=== PATIENT | male | born 1955 | race Asian ===

== ENCOUNTER 2022-12-30 14:37 | Inpatient (IN) | payer MEDICARE, OTHER ==
[~2022-12-30] VITALS: Ht 170.2 cm; Wt 85.3 kg
[2022-12-30] MEDS ORDERED: SODIUM CHLORIDE 0.9% 1,000 ML IV ONE (15:15)
[2022-12-30 15:55] LABS: BASOPHILS % 0.7 % (0.0-2.0); EOSINOPHILS % 0.1 % (0.0-5.0); HEMATOCRIT. 36.7 % (42.0-52.0); HEMOGLOBIN. 13.1 g/dL (14.0-18.0); LYMPHOCYTES % 17.4 % (20.0-50.0); MEAN CORPUSCULAR HEMOGLOBIN 32.8 pg (28.0-32.0); MEAN CORPUSCULAR VOLUME 91.9 fL (80.0-94.0); MEAN PLATELET VOLUME 8.6 fl (7.4-10.4); MONOCYTES % 5.2 % (2.0-8.0); NEUTROPHILS % 76.6 % (40.0-76.0); PLATELET 153 x1000/uL (130-400); RED BLOOD CELL COUNT 3.99 mill/uL (4.7-6.1); RED CELL DISTRIBUTION WIDTH 12.6 % (11.6-14.6)
[2022-12-30 16:04] LABS: CHLORIDE 102 mEq/L (98-107); PARTIAL THROMBOPLASTIN TIME 27.3 sec (23.4-31.0); PROTHROMBIN TIME 10.9 sec (9.6-11.0)
[2022-12-30] MEDS ORDERED: CLOPIDOGREL 75MG TABLET PO ONE (17:30)
[2022-12-30] MEDS ORDERED: ASPIRIN 81MG TABLET PO ONE (17:30)
[2022-12-30 20:30] VITALS: BP_SYST 119; BP_SYST 129; BP_DIAS 69; BP_DIAS 76
[2022-12-30 21:00] VITALS: BP 129/76
[2022-12-30] MEDS ORDERED: GUAIFENESIN 200MG/10ML SUGAR FREE UDC PO PRN (21:45)
[2022-12-30] MEDS ORDERED: ACETAMINOPHEN 650MG SUPP PR PRN (21:45)
[2022-12-30] MEDS ORDERED: ACETAMINOPHEN 650MG/20.3ML UDC GT PRN (21:45)
[2022-12-30] MEDS ORDERED: CLONIDINE 0.1MG TABLET PO PRN (21:45)
[2022-12-30] MEDS ORDERED: MAGNESIUM/ALUMINUM HYDROXIDE/SIMETHICONE 30ML UDC PO PRN (21:45)
[2022-12-30] MEDS ORDERED: ONDANSETRON HCL 4MG/2ML INJ IV PRN (21:45)
[2022-12-30] MEDS: SODIUM CHLORIDE 0.9% 1,000 ML IV SCH (22:00)
[2022-12-30] MEDS ORDERED: DEXTROSE 50% WATER 50ML SYRINGE IV PRN (22:30)
[2022-12-30] MEDS: ENOXAPARIN 40MG/0.4ML SYR SUBCUT SCH (23:13)
[2022-12-30] MEDS: INSULIN LISPRO 100 UNITS/ML SUBCUT SCH (23:17)
[2022-12-30] MEDS ORDERED: IOHEXOL-350 100 ML BOTTLE ONE (23:21)
[2022-12-30 23:56] LABS: CHLORIDE 108 mEq/L (98-107)
[2022-12-31] VITALS: BP 114/77
[2022-12-31 00:02] LABS: TOTAL IRON BINDING CAPACITY 266 ug/dL (250-450)
[2022-12-31 00:23] LABS: FERRITIN 31 ng/mL (22-322)
[2022-12-31 00:25] LABS: FOLIC ACID (FOLATE) SERUM >20 ng/mL ng/mL (>5.38); VITAMIN B12 SERUM 396 pg/mL (211-911)
[2022-12-31 04:00] VITALS: BP 109/74
[2022-12-31] MEDS: INSULIN LISPRO 100 UNITS/ML SUBCUT SCH ×7 (07:01→21:00)
[2022-12-31] MEDS: BLOOD SUGAR DIAGNOSTIC STRIP TEST SCH ×4 (07:02→21:50)
[2022-12-31] MEDS ORDERED: INSULIN LISPRO 100 UNITS/ML SUBCUT SCH (07:20)
[2022-12-31 07:39] LABS: T4 FREE 0.96 ng/dL (0.76-1.46)
[2022-12-31 07:59] LABS: BASOPHILS % 0.7 % (0.0-2.0); EOSINOPHILS % 0.6 % (0.0-5.0); HEMATOCRIT. 39.1 % (42.0-52.0); HEMOGLOBIN. 13.7 g/dL (14.0-18.0); LYMPHOCYTES % 32.8 % (20.0-50.0); MEAN CORPUSCULAR HEMOGLOBIN 32.7 pg (28.0-32.0); MEAN CORPUSCULAR VOLUME 93.5 fL (80.0-94.0); MONOCYTES % 7.9 % (2.0-8.0); PLATELET 152 x1000/uL (130-400); RED BLOOD CELL COUNT 4.19 mill/uL (4.7-6.1); RED CELL DISTRIBUTION WIDTH 12.7 % (11.6-14.6)
[2022-12-31 08:00] VITALS: BP 131/73
[2022-12-31] MEDS: SODIUM CHLORIDE 0.9% 1,000 ML IV SCH ×2 (08:00→18:06)
[2022-12-31] MEDS: FAMOTIDINE 20MG TABLET PO SCH ×2 (09:30→21:47)
[2022-12-31] MEDS: CLOPIDOGREL 75MG TABLET PO SCH (09:30)
[2022-12-31] MEDS: ASPIRIN 81MG TABLET PO SCH (09:30)
[2022-12-31] MEDS: FOLIC ACID 1MG TABLET PO SCH (10:51)
[2022-12-31] MEDS: THIAMINE HCL 100MG TABLET PO SCH (10:51)
[2022-12-31 12:00] VITALS: BP 124/76
[2022-12-31 16:00] VITALS: BP 127/76
[2022-12-31 20:00] VITALS: BP 115/91
[2022-12-31] MEDS ORDERED: ATORVASTATIN CALCIUM 40MG TABLET PO SCH ×2 (21:00)
[2022-12-31] MEDS: ENOXAPARIN 40MG/0.4ML SYR SUBCUT SCH (21:46)
[2022-12-31] MEDS ORDERED: INSULIN GLARGINE 100 UNITS/ML SUBCUT SCH (22:00)
[2023-01-01] VITALS: BP 114/76
[2023-01-01] MEDS: BLOOD SUGAR DIAGNOSTIC STRIP TEST SCH ×2 (06:37→12:19)
[2023-01-01] MEDS: INSULIN LISPRO 100 UNITS/ML SUBCUT SCH ×4 (06:37→12:38)
[2023-01-01 07:25] LABS: BASOPHILS % 0.9 % (0.0-2.0); EOSINOPHILS % 0.5 % (0.0-5.0); HEMOGLOBIN. 13.9 g/dL (14.0-18.0); LYMPHOCYTES % 32.8 % (20.0-50.0); MEAN CORPUSCULAR HEMOGLOBIN 33.2 pg (28.0-32.0); MEAN PLATELET VOLUME 8.6 fl (7.4-10.4); MONOCYTES % 6.9 % (2.0-8.0); NEUTROPHILS % 58.9 % (40.0-76.0); PLATELET 154 x1000/uL (130-400); RED BLOOD CELL COUNT 4.19 mill/uL (4.7-6.1); RED CELL DISTRIBUTION WIDTH 12.5 % (11.6-14.6)
[2023-01-01] MEDS ORDERED: LIP40 PO (07:55)
[2023-01-01] MEDS ORDERED: METF-416 MT (07:55)
[2023-01-01] MEDS ORDERED: ASPI-1160 PO (07:55)
[2023-01-01 08:00] VITALS: BP 130/75
[2023-01-01 09:03] LABS: CLARITY URINE CLEAR (CLEAR); COLOR URINE YELLOW (YELLOW); KETONES URINE 1+ (NEGATIVE); LEUKOCYTE ESTERASE URINE NEGATIVE (NEGATIVE); NITRITE URINE NEGATIVE (NEGATIVE); OCCULT BLOOD URINE NEGATIVE (NEGATIVE); PH URINE 5.5 (4.5-8.0); PROTEIN URINE NEGATIVE (NEGATIVE); SPECIFIC GRAVITY URINE 1.021 (1.005-1.030); UROBILINOGEN URINE 0.2 E.U./dL (0.2-1.0)
[2023-01-01 09:12] LABS: CHLORIDE 110 mEq/L (98-107)
[2023-01-01 09:30] LABS: PHOSPHORUS 2.7 mg/dL (2.5-4.9)
[2023-01-01 09:33] LABS: *AMPHETAMINES SCREEN URINE NEGATIVE (NEGATIVE); *BARBITURATES SCREEN URINE NEGATIVE (NEGATIVE); *BENZODIAZEPINES SCREEN URINE NEGATIVE (NEGATIVE); *COCAINE SCREEN URINE NEGATIVE (NEGATIVE); CANNABINOID URINE SCREEN NEGATIVE (NEGATIVE); METHADONE URINE SCREEN NEGATIVE (NEGATIVE); OPIATES URINE SCREEN NEGATIVE (NEGATIVE); PHENCYCLIDINE URINE SCREEN NEGATIVE (NEGATIVE)
[2023-01-01] MEDS ORDERED: CLOP-31 PO (10:37)
[2023-01-01] MEDS ORDERED: SIMV-43 PO (10:45)
[2023-01-01] MEDS: ASPIRIN 81MG TABLET PO SCH (11:59)
[2023-01-01] MEDS: FAMOTIDINE 20MG TABLET PO SCH (11:59)
[2023-01-01] MEDS: THIAMINE HCL 100MG TABLET PO SCH (11:59)
[2023-01-01] MEDS: FOLIC ACID 1MG TABLET PO SCH (11:59)
[2023-01-01] MEDS: CLOPIDOGREL 75MG TABLET PO SCH (11:59)
[2023-01-01 12:00] VITALS: BP 125/73
[2023-01-01 13:00] VITALS: BP 125/73
== END 2023-01-01 17:01 | disposition home or self-care (01) | DRG 65 ==
LOC: ER 14:37 → 3WST 18:40 → EDBEDREQ 18:45 → EDBEDREQTM 18:45 → ENRESERV 19:12
PROVIDERS: ADMIT Internal Medicine; ATTEND Internal Medicine
PROC: 4A00X4Z Measurement of Central Nervous Electrical Activity, External Approach (ICD-10-PCS; principal; 2023-01-01)
DX: I63.9 Cerebral infarction, unspecified (principal); E72.20 Disorder of urea cycle metabolism, unspecified; E87.1 Hypo-osmolality and hyponatremia; G93.40 Encephalopathy, unspecified; E83.51 Hypocalcemia; E78.5 Hyperlipidemia, unspecified; E11.65 Type 2 diabetes mellitus with hyperglycemia; R47.1 Dysarthria and anarthria; D64.9 Anemia, unspecified; I10 Essential (primary) hypertension; R29.702 NIHSS score 2; F10.10 Alcohol abuse, uncomplicated; Z79.02 Long term (current) use of antithrombotics/antiplatelets; Z79.84 Long term (current) use of oral hypoglycemic drugs; Z79.899 Other long term (current) drug therapy; Z87.891 Personal history of nicotine dependence
CPT/HCPCS: 36415; 70496; 70498; 70551; 71045; 76700; 80048; 80053; 80061; 80305; 80320; 81003; 82140; 82607; 82728; 82746; 82962; 83036; 83540; 83550; 83735; 84100; 84425; 84439; 84443; 84484; 85025; 86850; 86900; 93005; 93306; 93970; 95816; 97162; 99291; J1650; J1815; J7030; Q9967; G0480